=== PATIENT | female | born 2000 | race Caucasian/White ===

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

== ENCOUNTER 2021-02-23 03:26 | Emergency (ER) | payer MEDICAID ==
[~2021-02-23] VITALS: Ht 162.6 cm; Wt 46.8 kg
[2021-02-23 03:57] LABS: MICROSCOPIC INDICATED
[2021-02-23 05:33] LABS: BASOPHILS % (AUTO) 1 % (0-1); EOSINOPHILS % (AUTO) 8 % (1-7); LYMPHOCYTES % (AUTO) 42 % (22-44); MEAN CORPUSCULAR HEMOGLOBIN 33.2 pg (27.0-34.8); MEAN CORPUSCULAR HGB CONC 35.1 g/dL (32.4-35.8); MEAN PLATELET VOLUME 8.4 fL (7.4-10.4); MONOCYTES % (AUTO) 9 % (2-9); NEUTROPHILS % (AUTO) 40 % (42-75); PLATELET COUNT 211 x10^3/uL (130-400); RED BLOOD COUNT 4.57 x10^6/uL (3.82-5.3); RED CELL DISTRIBUTION WIDTH 12.7 % (9.6-15.2)
[2021-02-23 05:42] LABS: ALBUMIN 4.2 g/dL (3.4-5.0); ANION GAP 4 mmol/L (5-15); CALCIUM 9.6 mg/dL (8.5-10.1); CHLORIDE 107 mmol/L (98-107)
[2021-02-23 05:48] LABS: ALANINE AMINOTRANSFERASE 18 U/L (12-78); ALKALINE PHOSPHATASE 88 U/L (45-117); BILIRUBIN,TOTAL 0.7 mg/dL (0.2-1.0); CREATININE 0.67 mg/dL (0.55-1.02); TOTAL PROTEIN 7.9 g/dL (6.4-8.2)
[2021-02-23 07:15] VITALS: BP 107/65
--- NOTE | 2021-02-23 07:16 | NUR ---
FIRST CONTACT: ABD PAIN X 4 DAYS "SO BAD I HAD TO LEAVE WORK BECAUSE I COULDN'T WALK". DENIES N/V/D. [place] X 1. 5 MONTHS. PT TO BED WITH STEAY GAIT. ATTACHED TO MONITORS. VSS.NADN. POSTIONED TO COMFORT IN BED. DR. GAMEZ TO BEDSIDE FOR EVAL
--- NOTE | 2021-02-23 08:08 | NUR ---
PT BACK FROM US.
--- NOTE | 2021-02-23 11:31 | NUR ---
Patient given discharge instructions and they have confirmed that they understand the instructions. Patient ambulatory with steady gait. NAD, all questions answered appropriately, denies additional needs at this time. No personal belongings left in room after discharge.
== END 2021-02-23 11:32 | disposition home or self-care (01) ==
LOC: ED 10:50
DX: R10.32 Left lower quadrant pain (principal)
CPT/HCPCS: 36415; 76830; 80053; 81001; 83690; 84703; 85025; 87086; 99284

== ENCOUNTER 2021-02-27 11:21 | Emergency (ER) | payer MEDICAID ==
[~2021-02-27] VITALS: Ht 170.2 cm; Wt 46.9 kg
[2021-02-27 12:05] LABS: BASOPHILS % (AUTO) 1 % (0-1); EOSINOPHILS % (AUTO) 9 % (1-7); LYMPHOCYTES % (AUTO) 31 % (22-44); MEAN CORPUSCULAR HEMOGLOBIN 33.3 pg (27.0-34.8); MEAN CORPUSCULAR HGB CONC 35.4 g/dL (32.4-35.8); MEAN PLATELET VOLUME 8.5 fL (7.4-10.4); MONOCYTES % (AUTO) 9 % (2-9); NEUTROPHILS % (AUTO) 50 % (42-75); PLATELET COUNT 213 x10^3/uL (130-400); RED BLOOD COUNT 4.75 x10^6/uL (3.82-5.3); RED CELL DISTRIBUTION WIDTH 12.7 % (9.6-15.2)
[2021-02-27 12:17] LABS: ALANINE AMINOTRANSFERASE 21 U/L (12-78); ALBUMIN 4.8 g/dL (3.4-5.0); ANION GAP 7 mmol/L (5-15); CALCIUM 9.5 mg/dL (8.5-10.1); CHLORIDE 106 mmol/L (98-107)
[2021-02-27 12:24] LABS: ALKALINE PHOSPHATASE 103 U/L (45-117); BILIRUBIN,TOTAL 0.9 mg/dL (0.2-1.0); CREATININE 0.71 mg/dL (0.55-1.02); TOTAL PROTEIN 8.5 g/dL (6.4-8.2)
--- NOTE | 2021-02-27 13:20 | NUR ---
Patient to room from lobby
--- NOTE | 2021-02-27 13:30 | NUR ---
PT WALKED BACK FORM LOBBY WITH CHIEF COMPLAINT OF ABD PAIN. HERE THHURSDAY, WORSENING PAIN. DENIES SOB & CP
[2021-02-27 13:49] LABS: MICROSCOPIC NOT IND
--- NOTE | 2021-02-27 14:34 | NUR ---
RENZO CHARLES AT BEDSIDE FOR EVAL
[2021-02-27] MEDS ORDERED: MAALOX/HYOSCYAMINE/LIDOCAINE 45 ML BTL ONE (14:42)
[2021-02-27] MEDS ORDERED: MAALOX/HYOSCYAMINE/LIDOCAINE 45 ML BTL PO ONE (15:00)
[2021-02-27 15:15] VITALS: BP 95/58
== END 2021-02-27 15:17 | disposition home or self-care (01) ==
LOC: ED 11:22
DX: R10.13 Epigastric pain (principal)
CPT/HCPCS: 36415; 80053; 81003; 84703; 85025; 99283